=== PATIENT | female | born 1970 ===

== ENCOUNTER → 2018-10-31 | Outpatient (REF) | payer BC | LOC: M LAB LCGH 11:37 | PROVIDERS: ATTEND Obstetrics & Gynecology Obstetrics | DX: N89.8 Other specified noninflammatory disorders of vagina (principal) ==

== ENCOUNTER → 2018-12-02 | Outpatient (REF) | payer BC | LOC: M LAB LCGH 11:35 | PROVIDERS: ATTEND Orthopaedic Surgery | DX: M67.432 Ganglion, left wrist (principal) ==

== ENCOUNTER → 2019-06-05 | Outpatient (REF) | payer BC | LOC: M LAB LCGH 15:02 | PROVIDERS: ATTEND Obstetrics & Gynecology | DX: N85.8 Other specified noninflammatory disorders of uterus (principal) ==